=== PATIENT | female | born 1960 | race Caucasian/White ===

== ENCOUNTER 2019-11-07 20:25 | Inpatient (IN) ==
[2019-11-07] MEDS ORDERED: Ipratropium/Albuterol Neb 3 ML IH ONE (20:42)
[2019-11-07] MEDS ORDERED: methylPREDNISolone 125 MG/2 ML VIAL IVP ONE (20:42)
[2019-11-07 21:02] LABS: Basophils % 0.2 %; Eosinophils % 0.2 %; Hematocrit 41.9 % (35.3-44.9); Immature Granulocytes % 0.5 % (0-4); Lymphocytes # 1.1 K/mcL (0.6-4.6); Lymphocytes % 10.8 %; Mean Corpuscular HGB Conc 33.4 g/dL (31.6-35.5); Mean Corpuscular Hemoglobin 29.7 pg (28.0-33.3); Mean Platelet Volume 10.2 fL (9.4-12.4); Monocytes # 1.2 K/mcL (0.0-1.3); Monocytes % 11.7 %; Neutrophils # 7.5 K/mcL (1.6-8.9); Platelet Count 283 K/mcL (140-400); Red Blood Count 4.71 M/mcL (3.82-4.97); Red Cell Distribution Width 13.6 % (11.5-14.5); Segmented Neutrophils % 76.6 %; White Blood Count 9.8 K/mcL (4.3-11.1)
[2019-11-07] MEDS ORDERED: Isovue-370 500 ML BOTTLE IVP ONE (21:14)
[2019-11-07] MEDS ORDERED: 0.9 % Sodium Chloride 1,000 ML IVC ONE (21:14)
[2019-11-07 21:23] LABS: BUN/Creatinine Ratio 7 (6-26); Blood Urea Nitrogen 5 mg/dL (8-23); Carbon Dioxide 32 mEq/L (23-29); Chloride 93 mEq/L (98-107); Glucose 154 mg/dL (70-105); Osmolality,Calculated 278 (280-300); Potassium 2.8 mEq/L (3.5-5.1); Sodium 134 mEq/L (136-145); eGFR For African Americans > 60 (> 60); eGFR For Non-African Americans > 60 (> 60)
[2019-11-07] MEDS ORDERED: Potassium Chloride Elixir 20 MEQ/15 ML UDC PO ONE (21:28)
[2019-11-07 23:12] LABS: Adenovirus Not Detected (Not Detect); Bordetella Pertussis Not Detected (Not Detect); Chlamydophila pneumoniae Not Detected (Not Detect); Coronavirus 229E Not Detected (Not Detect); Coronavirus HKU1 Not Detected (Not Detect); Coronavirus NL63 Not Detected (Not Detect); Coronavirus OC43 Not Detected (Not Detect); Human Metapneumovirus Not Detected (Not Detect); Human Rhinovirus/Enterovirus Not Detected (Not Detect); Influenza A Subtype 2009 H1 Not Detected (Not Detect); Influenza B Not Detected (Not Detect); Mycoplasma pneumoniae Not Detected (Not Detect); Parainfluenza Virus 1 Not Detected (Not Detect); Parainfluenza Virus 2 Not Detected (Not Detect); Parainfluenza Virus 3 Not Detected (Not Detect); Parainfluenza Virus 4 Not Detected (Not Detect); Respiratory Syncytial Virus Not Detected (Not Detect)
[2019-11-07] MEDS ORDERED: cefTRIAXone 1,000 MG in Water for inj. (sterile) 10 ML IVP ONE (23:32)
[2019-11-07] MEDS ORDERED: Azithromycin 500 MG in 0.9 % Sodium Chloride 250 ML IVPB ONE (23:32)
[2019-11-08] MEDS ORDERED: diazePAM 5 MG TABLET PO PRN (00:14)
[2019-11-08] MEDS ORDERED: *HR* OxyCODONE/APAP 10/325 TABLET PO PRN (00:14)
[2019-11-08] MEDS ORDERED: 0.9 % Sodium Chloride 1,000 ML IVC SCH (00:15)
[2019-11-08] MEDS ORDERED: Naloxone 0.4 MG/ML INJ IVP PRN (00:15)
[2019-11-08] MEDS ORDERED: *HR* Metoprolol 5 MG/5 ML VIAL IVP PRN (00:18)
[2019-11-08] MEDS: Ipratropium/Albuterol Neb 3 ML IH SCH ×7 (03:34→23:55)
[2019-11-08] MEDS ORDERED: Ipratropium/Albuterol Neb 3 ML IH SCH (04:00)
[2019-11-08 04:14] LABS: BUN/Creatinine Ratio 7 (6-26); Blood Urea Nitrogen 5 mg/dL (8-23); Calcium 8.2 mg/dL (8.6-10.3); Carbon Dioxide 30 mEq/L (23-29); Chloride 102 mEq/L (98-107); Glucose 244 mg/dL (70-105); Osmolality,Calculated 287 (280-300); Potassium 3.5 mEq/L (3.5-5.1); Sodium 136 mEq/L (136-145); eGFR For African Americans > 60 (> 60); eGFR For Non-African Americans > 60 (> 60)
[2019-11-08] MEDS: *HR* Heparin 5,000 UNIT/ML VIAL SQ SCH ×2 (05:44→17:07)
[2019-11-08] MEDS: MethylPREDNISolone 40 MG/ML VIAL IVP SCH ×3 (07:56→23:08)
[2019-11-08] MEDS ORDERED: lisinopriL 20 MG TABLET PO SCH (09:00)
[2019-11-08] MEDS ORDERED: Ipratropium Neb 0.5 MG NEBULIZER IH PRN (13:33)
[2019-11-08] MEDS: *HR* OxyCODONE/APAP 10/325 TABLET PO PRN (17:12)
[2019-11-08] MEDS: lisinopriL 20 MG TABLET PO SCH ×2 (18:11→20:59)
[2019-11-08] MEDS: cefTRIAXone 1,000 MG in Water for inj. (sterile) 10 ML IVP SCH (23:08)
[2019-11-08] MEDS: Azithromycin 500 MG in 0.9 % Sodium Chloride 250 ML IVPB SCH (23:08)
[2019-11-09] MEDS: Ipratropium/Albuterol Neb 3 ML IH SCH ×5 (03:57→19:56)
[2019-11-09] MEDS: *HR* Heparin 5,000 UNIT/ML VIAL SQ SCH ×2 (05:13→17:20)
[2019-11-09] MEDS ORDERED: *HR* Metoprolol 5 MG/5 ML VIAL IVP PRN ×2 (07:36→12:55)
[2019-11-09] MEDS: lisinopriL 20 MG TABLET PO SCH (08:13)
[2019-11-09] MEDS: *HR* OxyCODONE/APAP 10/325 TABLET PO PRN ×2 (08:17→18:25)
[2019-11-09] MEDS: MethylPREDNISolone 40 MG/ML VIAL IVP SCH ×2 (08:18→19:50)
[2019-11-09] MEDS ORDERED: amLODIPine 5 MG TABLET PO SCH (09:00)
[2019-11-09] MEDS ORDERED: *HR* LORazepam 2 MG/ML VIAL IVP ONE (09:52)
[2019-11-09] MEDS: Nicotine 21 MG PATCH.TD24 TD SCH (10:15)
[2019-11-09 15:12] LABS: Amphetamine Screen,Urine Negative ng/mL (Cutoff=1000); Barbiturate Screen,Urine Negative ng/mL (Cutoff=200); Benzodiazepines Screen,Urine Negative ng/mL (Cutoff=200); Cannabinoid Screen,Urine Negative ng/mL (Cutoff = 50); Cocaine Screen,Urine Negative ng/mL (Cutoff= 300); Opiate Screen,Urine Negative ng/mL (Cutoff=300); Phencyclidine Screen,Urine Negative ng/mL (Cutoff=25)
[2019-11-09] MEDS: *HR* Labetalol 20 MG/4 ML SYRINGE IVP PRN ×2 (17:22→23:46)
[2019-11-09] MEDS ORDERED: amLODIPine 5 MG TABLET PO ONE (19:33)
[2019-11-09] MEDS: cefTRIAXone 1,000 MG in Water for inj. (sterile) 10 ML IVP SCH (22:21)
[2019-11-09] MEDS: Azithromycin 500 MG in 0.9 % Sodium Chloride 250 ML IVPB SCH (22:22)
[2019-11-10] MEDS: Ipratropium/Albuterol Neb 3 ML IH SCH ×7 (00:06→23:50)
[2019-11-10 00:41] LABS: Basophils % 0.1 %; Hematocrit 39.6 % (35.3-44.9); Hemoglobin 13.6 g/dL (11.5-15.4); Immature Granulocytes % 1.1 % (0-4); Lymphocytes # 0.6 K/mcL (0.6-4.6); Lymphocytes % 5.5 %; Mean Corpuscular HGB Conc 34.3 g/dL (31.6-35.5); Mean Corpuscular Hemoglobin 30.2 pg (28.0-33.3); Mean Platelet Volume 9.8 fL (9.4-12.4); Monocytes # 0.7 K/mcL (0.0-1.3); Neutrophils # 9.9 K/mcL (1.6-8.9); Platelet Count 369 K/mcL (140-400); Red Cell Distribution Width 13.5 % (11.5-14.5); Segmented Neutrophils % 87.3 %; White Blood Count 11.3 K/mcL (4.3-11.1)
[2019-11-10 01:00] LABS: BUN/Creatinine Ratio 14 (6-26); Blood Urea Nitrogen 11 mg/dL (8-23); Calcium 8.9 mg/dL (8.6-10.3); Carbon Dioxide 34 mEq/L (23-29); Chloride 94 mEq/L (98-107); Glucose 182 mg/dL (70-105); Osmolality,Calculated 286 (280-300); Potassium 2.8 mEq/L (3.5-5.1); Sodium 136 mEq/L (136-145); eGFR For African Americans > 60 (> 60); eGFR For Non-African Americans > 60 (> 60)
[2019-11-10] MEDS: *HR* Heparin 5,000 UNIT/ML VIAL SQ SCH ×2 (04:12→17:54)
[2019-11-10] MEDS: *HR* Labetalol 20 MG/4 ML SYRINGE IVP PRN (04:12)
[2019-11-10] MEDS: lisinopriL 20 MG TABLET PO SCH (09:10)
[2019-11-10] MEDS: MethylPREDNISolone 40 MG/ML VIAL IVP SCH ×2 (09:10→20:31)
[2019-11-10] MEDS: amLODIPine 5 MG TABLET PO SCH (09:10)
[2019-11-10] MEDS: diazePAM 5 MG TABLET PO PRN (09:18)
[2019-11-10] MEDS: *HR* OxyCODONE/APAP 10/325 TABLET PO PRN ×3 (09:19→22:29)
[2019-11-10] MEDS: Nicotine 21 MG PATCH.TD24 TD SCH (09:19)
[2019-11-10] MEDS ORDERED: Potassium Chloride Elixir 20 MEQ/15 ML UDC PO ONE (12:00)
[2019-11-10] MEDS ORDERED: *HR* Labetalol 20 MG/4 ML SYRINGE IVP ONE (16:17)
[2019-11-10] MEDS ORDERED: amLODIPine 5 MG TABLET PO ONE (17:00)
[2019-11-10] MEDS: Gabapentin 300 MG CAPSULE PO SCH (20:30)
[2019-11-10 21:25] LABS: Bilirubin,Urine Negative (Negative); Blood,Urine Negative (Negative); Clarity,Urine Cloudy (Clear); Color,Urine Yellow (Yellow); Glucose,Urine (UA) Normal (Normal); Ketones,Urine Negative (Negative); Leukocyte Esterase,Urine Negative (Negative); Nitrite,Urine Negative (Negative); PH,Urine 7.5 pH Units (5.0-8.0); Protein,Urine Trace mg/dL (Neg-Trace); Specific Gravity,Urine 1.019 (1.010-1.025); Urobilinogen,Urine Normal (Normal)
[2019-11-10 21:26] LABS: Potassium,Urine 34.3 mEq/L; Sodium, Urine 103.8 mEq/L
[2019-11-10 21:27] LABS: Bacteria,Urine None Seen per hpf (None-Few); Hyaline Casts,Urine None Seen per lpf (None-Few); RBC,Urine 0-3 per hpf (0-3); Squamous Epithelial Cell,Urine Many per lpf (None-Few); WBC,Urine 0-3 per hpf (0-3)
[2019-11-10] MEDS: Azithromycin 500 MG in 0.9 % Sodium Chloride 250 ML IVPB SCH (22:23)
[2019-11-10] MEDS: cefTRIAXone 1,000 MG in Water for inj. (sterile) 10 ML IVP SCH (22:23)
[2019-11-10] MEDS: hydrALAZINE 25 MG TABLET PO SCH (22:27)
[2019-11-11] MEDS: Ipratropium/Albuterol Neb 3 ML IH SCH ×6 (03:27→23:51)
[2019-11-11] MEDS: *HR* Heparin 5,000 UNIT/ML VIAL SQ SCH ×2 (05:37→17:54)
[2019-11-11 06:09] LABS: BUN/Creatinine Ratio 31 (6-26); Blood Urea Nitrogen 22 mg/dL (8-23); Calcium 9.6 mg/dL (8.6-10.3); Carbon Dioxide 30 mEq/L (23-29); Chloride 96 mEq/L (98-107); Glucose 167 mg/dL (70-105); Magnesium 1.8 mg/dL (1.6-2.6); Osmolality,Calculated 289 (280-300); Potassium 3.7 mEq/L (3.5-5.1); Sodium 136 mEq/L (136-145); eGFR For African Americans > 60 (> 60); eGFR For Non-African Americans > 60 (> 60)
[2019-11-11] MEDS: hydrALAZINE 25 MG TABLET PO SCH ×3 (08:20→23:40)
[2019-11-11] MEDS: lisinopriL 20 MG TABLET PO SCH (08:20)
[2019-11-11] MEDS: Nicotine 21 MG PATCH.TD24 TD SCH (08:20)
[2019-11-11] MEDS: *HR* OxyCODONE/APAP 10/325 TABLET PO PRN ×2 (08:21→21:25)
[2019-11-11] MEDS: amLODIPine 5 MG TABLET PO SCH (08:21)
[2019-11-11] MEDS: MethylPREDNISolone 40 MG/ML VIAL IVP SCH (08:21)
[2019-11-11] MEDS: diazePAM 5 MG TABLET PO PRN ×2 (08:21→21:25)
[2019-11-11 11:03] LABS: Mycoplasma pneumoniae IgG 0.19 U/L (<=0.09)
[2019-11-11 11:24] LABS: Triiodothyronine (T3) Free 2.37 pg/mL (2.50-3.90)
[2019-11-11] MEDS: cloNIDine HCL 0.1 MG TABLET PO SCH ×2 (17:54→21:19)
[2019-11-11] MEDS: Gabapentin 300 MG CAPSULE PO SCH (21:25)
[2019-11-11] MEDS: cefTRIAXone 1,000 MG in Water for inj. (sterile) 10 ML IVP SCH (23:38)
[2019-11-11] MEDS: Azithromycin 500 MG in 0.9 % Sodium Chloride 250 ML IVPB SCH (23:40)
[2019-11-12] MEDS: Ipratropium/Albuterol Neb 3 ML IH SCH ×3 (04:18→11:30)
[2019-11-12] MEDS: *HR* Heparin 5,000 UNIT/ML VIAL SQ SCH (05:55)
[2019-11-12 06:06] LABS: BUN/Creatinine Ratio 31 (6-26); Blood Urea Nitrogen 26 mg/dL (8-23); Carbon Dioxide 31 mEq/L (23-29); Chloride 98 mEq/L (98-107); Glucose 100 mg/dL (70-105); Magnesium 1.7 mg/dL (1.6-2.6); Osmolality,Calculated 291 (280-300); Potassium 3.4 mEq/L (3.5-5.1); Sodium 138 mEq/L (136-145); eGFR For African Americans > 60 (> 60); eGFR For Non-African Americans > 60 (> 60)
[2019-11-12] MEDS: cloNIDine HCL 0.1 MG TABLET PO SCH (07:29)
[2019-11-12] MEDS: amLODIPine 5 MG TABLET PO SCH (07:29)
[2019-11-12] MEDS: hydrALAZINE 25 MG TABLET PO SCH (07:29)
[2019-11-12] MEDS: Nicotine 21 MG PATCH.TD24 TD SCH (07:29)
[2019-11-12] MEDS: lisinopriL 20 MG TABLET PO SCH (07:29)
[2019-11-12] MEDS: *HR* OxyCODONE/APAP 10/325 TABLET PO PRN (07:37)
[2019-11-12] MEDS: diazePAM 5 MG TABLET PO PRN (07:37)
[2019-11-12] MEDS ORDERED: predniSONE 20 MG TABLET PO SCH (09:00)
[2019-11-12] MEDS ORDERED: Metoprolol XL (24 HR) Succ 25 MG TAB.ER.24H PO SCH (11:00)
[2019-11-12 11:01] VITALS: BP 145/83
== END 2019-11-12 14:23 | disposition home or self-care (01) ==
LOC: 3BNU 20:25 → EMEROOARM 20:25 → SUATTDRO 23:50 → 3BNU 11-08 00:06 → SUATTDRO 11-09 09:32
PROVIDERS: ADMIT Internal Medicine; ATTEND Internal Medicine